=== PATIENT | male | born 1980 | race Caucasian/White ===

== ENCOUNTER → 2018-06-04 08:17 | Outpatient (CLI) | payer BC, SELFPAY ==
[2018-06-04 11:02] LABS: Anion Gap 10 (5-15); BUN 20 mg/dL (7-18); BUN/Creat Ratio 19.4 RATIO (10-20); Calcium,Total 9.2 mg/dL (8.5-10.1); Chloride 106 mmol/L (98-107); Cholesterol 168 mg/dL (200); Creatinine, Serum 1.03 mg/dL (0.70-1.30); EST Glomerular Filtration Rate 87 mL/min (>60); Est Glom Filt Rate - Afr Amer 105 mL/min (>60); Glucose 95 mg/dL (74-106); High Density Lipoprotein 36 mg/dL; Potassium 4.2 mmol/L (3.5-5.1); Sodium Level 137 mmol/L (136-145); Thyroid Stim Hormone (TSH) 1.44 uIU/mL (0.358-3.74); Triglycerides 86 mg/dL; Very Low Density Lipoprotein 17 mg/dL (5-40)
== END ==
PROVIDERS: Family Provider Family Medicine; PCP Family Medicine; Visit Provider Family Medicine
DX: Z00.00 Encounter for general adult medical examination without abnormal findings (principal)
CPT/HCPCS: 36415; 80048; 80061; 84403; 84443

== ENCOUNTER → 2018-07-29 16:13 | Outpatient (CLI) | payer BC, SELFPAY | PROVIDERS: Family Provider Family Medicine; PCP Family Medicine; Visit Provider Family Medicine | DX: E29.1 Testicular hypofunction (principal) | CPT/HCPCS: 36415; 84403 ==

== ENCOUNTER → 2018-09-29 08:20 | Outpatient (CLI) | payer BC, SELFPAY ==
[2017-10-04 12:36] VITALS: BMI 35.7
== END ==
PROVIDERS: Family Provider Family Medicine; PCP Family Medicine; Visit Provider Family Medicine
DX: E29.1 Testicular hypofunction (principal)
CPT/HCPCS: 36415; 84403

== ENCOUNTER → 2018-10-02 15:40 | Outpatient (CLI) | payer BC, SELFPAY ==
[2017-10-04 12:36] VITALS: BMI 35.7
--- NOTE | 2018-10-02 15:49 | RAD_ITS ---
STUDY: X-RAY - RIGHT HIP REASON FOR EXAM: Male, 38 years old. Pain. TECHNIQUE: 2 views of the hip and single image of the pelvis. COMPARISON: None. FINDINGS: There are mild degenerative changes of the hips. Normal visualized superior and inferior pubic rami and ischial tuberosities. There is a nonspecific bowel gas pattern. RAD/HIP, UNI W/ Pelvis 2-3 Views IMPRESSION: Mild degenerative changes. Electronically Signed: Destini Calix MD at 16:09 EST Tel , Service support ,
--- OUTSIDE RECORDS SUMMARY | 2018-12-07 05:34 | XMS RPT_ITS ---
:1980 Author Organization [facility] Care Team Providers Name Role Phone Matt Sam Attending Unavailable Sam, Matt Primary Care Unavailable Sam, Matt Attending Unavailable Sam, Matt Referring Unavailable Sam, Matt Primary Care Unavailable Sam, Matt Attending Unavailable Sam, Matt Referring Unavailable Sam, Matt Primary Care Unavailable Sam, Matt Attending Unavailable Sam, Matt Primary Care Unavailable Sam, Matt Attending Unavailable Sam, Matt Primary Care Unavailable PROBLEMS PROBLEMS DATE TYPE CONDITION / CODE ATTENDING STATUS SOURCE 10/02/2018 Unknown M25.551 - Pain in Matt Sam Active Dg right hip / [facility] M25.551(ICD-10) Hospital Repository 07/29/2018 Unknown 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 [address] [place] [address] / REHABILITATION SERVICES INITIAL EVALUATION MR#: [id number] Acct: [id number] Name: NISREEN ORTIZ Rep #: [id number] : 1980 38 From: Serge JIMENEST, OCS, CSCS Referring Dr.: Matt Sam MD Status: REG R Insurance: ANTH S[employer] PAY INSURANCE Patient's Visit Information NISREEN ORTIZ is a 38 year old M referred to Physical Therapy by Matt Sam MD with a diagnosis of R hip pain. Date of Evaluation: 10/07/18 Physical Therapist: Serge Cristobal DPT, OCS, CSCS - Visit Plan Frequency: 1-2x /Week Duration: 2-4 Weeks Plan: 1-2x/week for 4 weeks... Pt to rest and limit rotations/pivotting/painful activities for next week. Pathology is likely in labrum and needs rest. If doing better with ROM and pain next week then can progress to gentle strength and gradual return to function over 3-4 weeks tolerance. If no better, can increase frequency or return back to doctor for next step(MRI, ORtho) - Subjective Findings: Beginning of last week got outter R hip pain. Progressed to the front of hip. Difficult to walk and transition. Lately transition has been bad but walking not as bad. Been hurting since 1.5 weeks maybe because he was runnign too much. Was sledriding with son that weekend and that did not help. Had achy hip R for a couple weeks prior. Pain 0-6/10 last two days. Sleep is good. 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 Lifting R leg to put sock on(cross leg ) in morning is tight adn painful. Has to avoid running currently. Also does strength training on Bowflex but not able to currently. - Pain R hip Pain Intensity (Out of 10): 0 Pain Intensity Range: 0, 6 - Objective Pain to exit chair in R anterior hip. Walks without antalgia. Steps reciprocal without rail without pain. ankle adn knee ROM B WFL and symmetrical. L hip AROM WFL. R hip AROM normal except end range of IR very painful. Tender to touch hip joint anteriorly R groin. Strength in B hips is 4/5 R and pain wiht rotations slightly, not flexion or extension. L is 4+ and not painful. reflexes 2/3 patella and achilles. Sensation WNL to gross light touch B LE. + R FADDIR. - MICHELLE, - scour. Hurts to pivot on R and disco test. - Goals Goal 1:: Walk and normal PROM without pain. Goal Time Frame: 2-4 Weeks Goal 2:: I approp HEP to rehab Goal Time Frame: 2-4 Weeks Goal 3:: Plan to return to running Goal Time Frame: 2-4 Weeks - Rehabilitation Potential Physical Therapy Diagnosis: R hip pain likely labral pathology. Rehabilitation Potential: Fair - Anticipated Interventions Patient/Client Instruction: Educate patient on: Condition, Plan of Care For the Purpose of:: To decrease pain, To increase ROM, To improve muscle performance and motor function Therapeutic Exercise to Include: Strength training, Flexibilty training, Passive ROM, Active ROM For the Purpose of:: To decrease pain, To improve muscle performance and motor function, To increase tolerance to activity/condition/position Manual Therapy Techniques to Include: Mobilization For the Purpose of:: To increase tolerance to activity/condition/position Thank you for the opportunity to evaluate your patient. For Medicare and Medicare HMO plans, please review the plan of care and approve it. It will need to be FAXED BACK to us at [phone] for Medicare purposes. For Medicare only, by signing this I certify the plan of care. Please let me know if there are questions or concerns regarding this plan of care. Physician Signature: Date: <Electronically signed by Serge Cristobal DPT, OCS, CSCS> 10/08/18 0921 CC: Matt Sam MD EBG Signed HIP, UNI W/ PELVIS Observed: 10/02/2018 Status: F Source: DG 2-3 VIEWS 3:49 PM [facility] REPOSITORY [facility] Imaging Services [address] [place] [address] HIP, UNI W/ Pelvis 2-3 Views MR#: [id number] Acct: [id number] Name: NISREEN ORTIZ Rep #: [id number] : 1980 M 38 From: Destini Calix MD PCP: Matt Sam MD Status: REG CLI Study: HIP, UNI W/ Pelvis 2-3 Views Date of Exam: 10/02/18 Exam# [id number] Ordering Dr: Matt Sam MD STUDY: X-RAY - RIGHT HIP REASON FOR EXAM: Male, 38 years old. Pain. TECHNIQUE: 2 views of the hip and single image of the pelvis. COMPARISON: None. FINDINGS: There are mild degenerative changes of the hips. Normal visualized superior and inferior pubic rami and ischial tuberosities. There is a nonspecific bowel gas pattern. RAD/HIP, UNI W/ Pelvis 2-3 Views IMPRESSION: Mild degenerative changes. Electronically Signed: Destini Calix MD at 16:09 EST Tel , Service support , CC: Matt Sam MD Photograph Tinter: Signed TESTOSTERONE, SERUM TOTAL Collected: 09/29/2018 Status: F Source: DG 8:21 AM [facility] REPOSITORY TYPE CODE TESTS RESULT OUT OF REFERENCE UNITS RANGE LAB L509.3000 ng/dL Testosterone Normal 187.04 Result Comment: NORMAL REFERENCE RANGES MALE AGE <50 123.06 - 813.86 ng/dL MALE AGE >50 89.98 - 780.10 ng/dL FEMALE PREMENOPAUSE AGE 21 - 60 9.01 - 47.94 ng/dL FEMALE POSTMENOPAUSE AGE 45 - 89 <7.00 - 45.62 ng/dL REFERENCE RANGE AND METHODOLOGY CHANGED 09/03/2017 Performed By: #### L509.3000 #### Dg [facility] [place], [address] TESTOSTERONE, SERUM TOTAL Collected: 07/29/2018 Status: F Source: DG 4:16 PM [facility] REPOSITORY TYPE CODE TESTS RESULT OUT OF REFERENCE UNITS RANGE LAB L509.3000 ng/dL Testosterone Normal 434.45 Result Comment: NORMAL REFERENCE RANGES MALE AGE <50 123.06 - 813.86 ng/dL MALE AGE >50 89.98 - 780.10 ng/dL FEMALE PREMENOPAUSE AGE 21 - 60 9.01 - 47.94 ng/dL FEMALE POSTMENOPAUSE AGE 45 - 89 <7.00 - 45.62 ng/dL REFERENCE RANGE AND METHODOLOGY CHANGED 09/03/2017 Performed By: #### L509.3000 #### [facility] [address] [place], [address] TESTOSTERONE, SERUM TOTAL Collected: 06/04/2018 Status: F Source: [place] 8:20 AM [facility] REPOSITORY TYPE CODE TESTS RESULT OUT OF REFERENCE UNITS RANGE LAB L509.3000 ng/dL Testosterone Normal 214.68 Result Comment: NORMAL REFERENCE RANGES MALE AGE <50 123.06 - 813.86 ng/dL MALE AGE >50 89.98 - 780.10 ng/dL FEMALE PREMENOPAUSE AGE 21 - 60 9.01 - 47.94 ng/dL FEMALE POSTMENOPAUSE AGE 45 - 89 <7.00 - 45.62 ng/dL REFERENCE RANGE AND METHODOLOGY CHANGED 09/03/2017 Performed By: #### L509.3000 #### [facility] [address] [facility] [place], [address] BASIC METABOLIC Collected: 06/04/2018 Status: F Source: DG PROFILE (BMP) 8:20 AM [facility] REPOSITORY TYPE CODE TESTS RESULT OUT OF RANGE REFERENCE UNITS LAB L501.0100 74-106 mg/dL Normal GLU 95 Result Comment: Please note revised GLUCOSE reference range effective 2017. LAB L501.1000 7-18 mg/dL High BUN 20 LAB L501.1100 0.70-1.30 mg/dL Normal CREAT,SERUM 1.03 Result Comment: The validity of the calculated GFR AND GFRAA in patients over 70 years has not been determined. Clinical correlation is essential. LAB L501.1110 >60 mL/min Normal EST GFR 87 Result Comment: Non- GFR Calc LAB L501.1115 >60 mL/min Normal EST GFR - AA 105 Result Comment: GFR Calc LAB L501.1300 10-20 RATIO Normal BUN/CRE 19.4 LAB L501.2200 8.5-10.1 mg/dL CA Normal 9.2 LAB L501.5300 136-145 mmol/L NA Normal 137 LAB L501.5600 3.5-5.1 mmol/L K Normal 4.2 LAB L501.5900 98-107 mmol/L CL Normal 106 LAB L501.6100 21.0-32.0 mmol/L Normal CO2 21.0 LAB L501.6200 5-15 Normal GAP 10 Performed By: #### L500.2500, L500.4100, L501.9520 #### [facility] [address] [facility] [place], [address] LIPID PROFILE Collected: 06/04/2018 Status: F Source: [place] 8:20 AM [facility] REPOSITORY TYPE CODE TESTS RESULT OUT OF RANGE REFERENCE UNITS LAB L501.4900 200 mg/dL Normal CHOL 168 Result Comment: <200 mg/dL Desirable 200-240 mg/dL Borderline >240 mg/dL High Risk LAB L501.5000 mg/dL Normal TRIG 86 Result Comment: The drugs N-Acetylcysteine and Metamizole may falsely depress this assay. Serum Triglycerides Reference Interval Normal <150 mg/dL Borderline high 150 - 199 mg/dL High 200 - 499 mg/dL Very High > or = 500 mg/dL LAB L501.6400 mg/dL Low HDL 36 Result Comment: The drugs N-Acetylcysteine and Metamizole may falsely depress this assay. Reference Range HDL <40 mg/dL Low HDL Cholesterol HDL >or= 60 mg/dL High HDL Cholesterol LAB L501.6500 0-130 mg/dL Normal LDL 115 LAB L501.6600 5-40 mg/dL Normal VLDL 17 Performed By: #### L500.2500, L500.4100, L501.9520 #### [facility] [address] [facility] [place], [address] THYROID STIM HORMONE Collected: 06/04/2018 Status: F Source: [place] ([facility]) 8:20 AM [facility] REPOSITORY TYPE CODE TESTS RESULT OUT OF RANGE REFERENCE UNITS LAB L501.9520 0.358-3.74 uIU/mL Normal TSH 1.44 Performed By: #### L500.2500, L500.4100, L501.9520 #### [facility] [address] [place], [address] ALLERGIES ALLERGIES DATE TYPE / CODE NAME / CODE REACTION SEVERITY SOURCE 10/04/2017 Drug No Known Unknown [facility] Allergy/4160 Allergies/F00 Hospital 96407(SNOMED [id number](RXNOR Repository CT) M) ENCOUNTERS ENCOUNTERS ADMIT/DISCHARGE ACCOUNT ADMITTING ENCOUNTER LOCATION SOURCE NUMBER CLASS 10/07/2018 [id number] Ambulatory Dg Dg 8 [facility] ing:PT Repository 10/02/2018 [id number] Ambulatory Dg [place] 8 [facility] ing:MTRAD Repository 09/29/2018 [id number] [facility] Dg Dg 5 [facility] ing:MFPLAB Repository 07/29/2018 [id number] Ambulatory [place] Dg 3 [facility] ing:MFPLAB Repository 06/04/2018 [id number] [facility] [place] 2 [facility] ing:MFPLAB Repository PAYERS PAYERS ENCOUNTER GUARANTOR PAYER SUBSCRIBER SOURCE 10/07/2018 NISREEN CAO Primary NISREEN Urrutiaoster [id number] TR Insurance:ANTHEMPolic TAGGARTDOB: [address] y Number: [id number] [address]Wjt: 330 [id number] Repository [phone] (HP) cecily Date:4101-55-89SN [address] [place] [address]OF: 10/07/2018 Secondary NOT GIVENUNK [place] Insurance:SELF PAY [facility] Number: Effective Repository Date:2018-10-02 10/02/2018 NISREEN CAO Primary NISREEN CAO Dg [id number] TR Insurance:ANTHEMPolic TAGGARTDOB: [address] y Number: [id number] [address]Jdx: 330 [id number] Repository [phone] (UU) cecily Date:7554-14-75LX [address] [place] [address] [id number]: 10/02/2018 Secondary NOT GIVENUNK Dg Insurance:SELF PAY [facility] Number: Effective Repository Date:2018-10-02 09/29/2018 NISREEN CAO Primary NISREEN E KILEY [place] [id number] TWP Insurance:ANTHEMPolic TAGGARTDOB: [address], y Number: [id number]: [id number] Repository cecily Date:6764-19-38OI () [address], [place] [address]ES: 09/29/2018 Secondary NOT GIVENUNK Dg Insurance:SELF PAY [facility] Number: Effective Repository Date:2018-09-29 07/29/2018 NISREEN CAO Primary NISREEN E KILEY [place] [id number] TWP Insurance:ANTHEMPolic TAGGARTDOB: [address] [place] [address], y Number: [id number]: [id number] Repository cecily Date:4623-38-33ZW () [address], [place] [address]MG: 07/29/2018 Secondary NOT GIVENUNK [place] Insurance:SELF PAY [facility] Number: Effective Repository Date:2018-07-29 06/04/2018 NISREEN CAO Primary NISREEN E KILEY Dg [id number] TWP Insurance:ANTHEMPolic TAGGARTDOB: [address] [place] [address], y Number: [id number] [address]Fyz: [id number] Repository cecily Date:3698-24-25XA ) [address], [place] [address]KZ: 06/04/2018 Secondary NOT GIVENUNK [place] Insurance:SELF PAY [facility] Number: Effective Repository Date:2018-06-04
== END ==
PROVIDERS: Family Provider Family Medicine; PCP Family Medicine; Referring Provider Family Medicine; Visit Provider Family Medicine
DX: M25.551 Pain in right hip (principal)
CPT/HCPCS: 73502

== ENCOUNTER → 2018-11-04 16:20 | Outpatient (CLI) | payer BC, SELFPAY ==
[2017-10-04 12:36] VITALS: BMI 35.7
== END ==
PROVIDERS: Family Provider Family Medicine; PCP Family Medicine; Visit Provider Family Medicine
DX: E29.1 Testicular hypofunction (principal)
CPT/HCPCS: 36415; 84403

== ENCOUNTER 2018-11-11 15:30 | Outpatient (RCR) | payer BC, SELFPAY ==
--- NOTE | 2018-10-07 15:50 | HP.PTEVAL_ITS ---
Patient's Visit Information NISREEN ORTIZ is a 38 year old M referred to Physical Therapy by Matt Sam MD with a diagnosis of R hip pain. Date of Evaluation: 10/07/18 Physical Therapist: Serge Cristobal DPT, OCS, CSCS - Visit Plan Frequency: 1-2x /Week Duration: 2-4 Weeks Plan: 1-2x/week for 4 weeks... Pt to rest and limit rotations/pivotting/painful activities for next week. Pathology is likely in labrum and needs rest. If doing better with ROM and pain next week then can progress to gentle strength and gradual return to function over 3-4 weeks tolerance. If no better, can increase frequency or return back to doctor for next step(MRI, ORtho) - Subjective Findings: Beginning of last week got outter R hip pain. Progressed to the front of hip. Difficult to walk and transition. Lately transition has been bad but walking not as bad. Been hurting since 1.5 weeks maybe because he was runnign too much. Was sledriding with son that weekend and that did not help. Had achy hip R for a couple weeks prior. Pain 0-6/10 last two days. Sleep is good. 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 Lifting R leg to put sock on(cross leg ) in morning is tight adn painful. Has to avoid running currently. Also does strength training on Bowflex but not able to currently. - Pain R hip Pain Intensity (Out of 10): 0 Pain Intensity Range: 0, 6 - Objective Pain to exit chair in R anterior hip. Walks without antalgia. Steps reciprocal without rail without pain. ankle adn knee ROM B WFL and symmetrical. L hip AROM WFL. R hip AROM normal except end range of IR very painful. Tender to touch hip joint anteriorly R groin. Strength in B hips is 4/5 R and pain wiht rotations slightly, not flexion or extension. L is 4+ and not painful. reflexes 2/3 patella and achilles. Sensation WNL to gross light touch B LE. + R FADDIR. - MICHELLE, - scour. Hurts to pivot on R and disco test. - Goals Goal 1:: Walk and normal PROM without pain. Goal Time Frame: 2-4 Weeks Goal 2:: I approp HEP to rehab Goal Time Frame: 2-4 Weeks Goal 3:: Plan to return to running Goal Time Frame: 2-4 Weeks - Rehabilitation Potential Physical Therapy Diagnosis: R hip pain likely labral pathology. Rehabilitation Potential: Fair - Anticipated Interventions Patient/Client Instruction: Educate patient on: Condition, Plan of Care For the Purpose of:: To decrease pain, To increase ROM, To improve muscle performance and motor function Therapeutic Exercise to Include: Strength training, Flexibilty training, Passive ROM, Active ROM For the Purpose of:: To decrease pain, To improve muscle performance and motor function, To increase tolerance to activity/condition/position Manual Therapy Techniques to Include: Mobilization For the Purpose of:: To increase tolerance to activity/condition/position Thank you for the opportunity to evaluate your patient. For Medicare and Medicare HMO plans, please review the plan of care and approve it. It will need to be FAXED BACK to us at [phone] for Medicare purposes. For Medicare only, by signing this I certify the plan of care. Please let me know if there are questions or concerns regarding this plan of care. Physician Signature: Date:
--- NOTE | 2018-11-11 15:48 | HP.PTDCSUM ---
HP - PT D/C Summary It has been my pleasure to treat NISREEN ORTIZ under orders from Matt Sam MD, for the diagnosis of R hip pain for a total of 5 visit(s). Discharge Date: 11/11/18 Please see the following information for a summary of their discharge status. - Subjective Subjective: Good, jogging 22 minutes on and off. Gets some soreness gayla nd off the day after but not while he is running. Sleep is OK. Other exercises are fine. Works good. - Pain R hip Pain Intensity (Out of 10): 0 - Overall Improvement % Improvement: 80 - Objective Objective/Function: Walk is normal, steps are normal. double steps normal no pain. ROM is full and just slight pinching transiently end of flexion and IR. Strength is 5/5 hip tests without pain and knee tests. OVERALL DOING WELL AND CAN PROGRESS HIMSELF AT THIS POINT. - Goals Goal 1:: Walk and normal PROM without pain. Goal Progress: Goal Met Goal 2:: I approp HEP to rehab Goal Progress: Goal Met Goal 3:: Plan to return to running Goal Progress: Goal Met - Plan Plan: d/c, Pt to contact doctor if pain returns. - D/C Information Discharge Comments: pt doing very well adn will continue via HEP and slow progression of functional running. If there are questions or concerns regarding this patient's physical therapy, please feel free to call me at [phone]. Thank you for the referral of this patient. Sincerely, Serge Cristobal, DPT, OCS, CSCS
== END 2018-11-11 19:00 | disposition home or self-care (01) ==
LOC: PT 15:30
PROVIDERS: Family Provider Family Medicine; PCP Family Medicine; Referring Provider Family Medicine; Visit Provider Family Medicine
DX: M25.551 Pain in right hip (principal)
CPT/HCPCS: 97110; 97162; 97530

== ENCOUNTER → 2019-03-10 | Outpatient (CLI) | payer BC, SELFPAY ==
[2017-10-04 12:36] VITALS: BMI 35.7
== END | disposition home or self-care (01) ==
LOC: MFPLAB 11:22
PROVIDERS: Family Provider Family Medicine; PCP Family Medicine; Referring Provider Family Medicine; Visit Provider Family Medicine
DX: E29.1 Testicular hypofunction (principal)
CPT/HCPCS: 36415; 84403

== ENCOUNTER → 2019-05-13 | Outpatient (CLI) | payer BC, SELFPAY ==
[2017-10-04 12:36] VITALS: BMI 35.7
[2019-05-13 14:12] LABS: Absolute Lymphocyte Count 1.51 X10^3/uL (0.83-4.51); Absolute Neutrophil Count 3.6 X10^3/uL (2.0-7.7); Basophil# 0.04 X10^3/uL; Basophil% 0.7 % (0-1); Eosinophil# 0.04 X10^3/uL; Eosinophils% 0.7 % (0-5); Hematocrit 50.5 % (40-54); Hemoglobin 16.5 g/dL (13.0-16.5); Lymphocyte # 1.51 X10^3/ul (4.0); Lymphocyte % 26.8 % (19-41); Mean Corp Hgb Conc 32.7 g/dL (32-36); Mean Corpuscular Hgb 29.5 pg (27.0-32.0); Mean Corpuscular Volume 90.2 fL (80-94); Mean Platelet Vol. 12.1 fl (6.2-12.0); Monocyte# 0.46 X10^3/uL; Monocyte% 8.2 % (0-10); NRBC Flagged by Analyzer 0 % (0-5); Neutrophil # 3.59 X10^3/uL (2.7-7.7); Neutrophil % 63.6 % (47-70); Platelet Count 186 K/mm3 (150-450); RBC Distribution Width SD 42.6 fl (35.1-43.9); White Blood Count 5.6 K/mm3 (4.4-11.0)
[2019-05-13 14:36] LABS: PSA,Total - Annual Screen 1.07 ng/mL (0.00-4.00)
== END | disposition home or self-care (01) ==
LOC: MFPLAB 11:46
PROVIDERS: Family Provider Family Medicine; PCP Family Medicine; Referring Provider Family Medicine; Visit Provider Family Medicine
DX: E29.1 Testicular hypofunction (principal)
CPT/HCPCS: 36415; 84153; 84403; 85025; G0103

== ENCOUNTER → 2019-05-26 12:07 | Outpatient (CLI) | payer BC, SELFPAY ==
[2017-10-04 12:36] VITALS: BMI 35.7
== END ==
PROVIDERS: Family Provider Family Medicine; PCP Family Medicine; Referring Provider Family Medicine; Visit Provider Family Medicine
DX: E29.1 Testicular hypofunction (principal)
CPT/HCPCS: 36415; 84403

== ENCOUNTER → 2020-06-23 13:46 | Outpatient (CLI) | payer BC, SELFPAY ==
[2017-10-04 12:36] VITALS: BMI 35.7
[2020-06-23 15:08] LABS: Absolute Lymphocyte Count 1.57 X10^3/uL (0.83-4.51); Absolute Neutrophil Count 3.2 X10^3/uL (2.0-7.7); Basophil# 0.04 X10^3/uL; Basophil% 0.7 % (0-1); Eosinophil# 0.05 X10^3/uL; Eosinophils% 0.9 % (0-5); Hematocrit 51.5 % (40-54); Hemoglobin 16.7 g/dL (13.0-16.5); Lymphocyte # 1.57 X10^3/ul (4.0); Lymphocyte % 29.3 % (19-41); Mean Corp Hgb Conc 32.4 g/dL (32-36); Mean Corpuscular Hgb 29.2 pg (27.0-32.0); Mean Platelet Vol. 12.2 fl (6.2-12.0); Monocyte# 0.52 X10^3/uL; Monocyte% 9.7 % (0-10); NRBC Flagged by Analyzer 0 % (0-5); Neutrophil # 3.17 X10^3/uL (2.7-7.7); Neutrophil % 59.2 % (47-70); Platelet Count 181 K/mm3 (150-450); RBC Distribution Width CV 13.1 % (11.6-14.6); Red Blood Count 5.72 M/mm3 (4.6-6.2); White Blood Count 5.4 K/mm3 (4.4-11.0)
[2020-06-23 15:41] LABS: Anion Gap 6 (5-15); BUN 22 mg/dL (7-18); BUN/Creat Ratio 23.2 RATIO (10-20); Calcium,Total 8.9 mg/dL (8.5-10.1); Chloride 101 mmol/L (98-107); Creatinine, Serum 0.95 mg/dL (0.70-1.30); EST Glomerular Filtration Rate 94 mL/min (>60); Est Glom Filt Rate - Afr Amer 114 mL/min (>60); Glucose 69 mg/dL (74-106); PSA,Total - Annual Screen 1.14 ng/mL (0.00-4.00); Potassium 3.8 mmol/L (3.5-5.1); Sodium Level 133 mmol/L (136-145)
== END ==
PROVIDERS: PCP Family Medicine; Referring Provider Family Medicine; Visit Provider Family Medicine
DX: E29.1 Testicular hypofunction (principal)
CPT/HCPCS: 36415; 80048; 84153; 84403; 85025; G0103

== ENCOUNTER → 2020-12-28 08:19 | Outpatient (CLI) | payer BC, SELFPAY ==
[2017-10-04 12:36] VITALS: BMI 35.7
[2020-12-28 10:45] LABS: Anion Gap 2 (5-15); BUN 19 mg/dL (7-18); BUN/Creat Ratio 15.6 RATIO (10-20); Chloride 105 mmol/L (98-107); Cholesterol 164 mg/dL (200); Creatinine, Serum 1.22 mg/dL (0.70-1.30); EST Glomerular Filtration Rate 70 mL/min (>60); Est Glom Filt Rate - Afr Amer 85 mL/min (>60); Glucose 91 mg/dL (74-106); High Density Lipoprotein 49 mg/dL; PSA,Total - Annual Screen 1.53 ng/mL (0.00-4.00); Sodium Level 134 mmol/L (136-145); Triglycerides 67 mg/dL; Very Low Density Lipoprotein 13 mg/dL (5-40)
== END ==
PROVIDERS: PCP Family Medicine; Referring Provider Family Medicine; Visit Provider Family Medicine
DX: I10 Essential (primary) hypertension (principal); E29.1 Testicular hypofunction
CPT/HCPCS: 36415; 80048; 80061; 84153; 84403; G0103

== ENCOUNTER 2021-01-23 13:08 | Outpatient (RCR) | payer BC, SELFPAY | END 2021-02-27 23:59 | LOC: IMMUN 13:08 | PROVIDERS: PCP Family Medicine; Visit Provider Family Medicine | DX: Z23 Encounter for immunization (principal) | CPT/HCPCS: 0001A; 0002A; 91300 ==

== ENCOUNTER → 2021-06-27 11:27 | Outpatient (CLI) | payer BC, SELFPAY ==
[2021-06-27 15:16] LABS: Anion Gap 8 (5-15); BUN 17 mg/dL (7-18); BUN/Creat Ratio 16.3 RATIO (10-20); Calcium,Total 8.9 mg/dL (8.5-10.1); Chloride 103 mmol/L (98-107); Cholesterol 144 mg/dL (200); Creatinine, Serum 1.04 mg/dL (0.70-1.30); EST Glomerular Filtration Rate 84 mL/min (>60); Est Glom Filt Rate - Afr Amer 102 mL/min (>60); Glucose 85 mg/dL (74-106); High Density Lipoprotein 48 mg/dL; PSA,Total - Annual Screen 1.26 ng/mL (0.00-4.00); Potassium 3.9 mmol/L (3.5-5.1); Sodium Level 137 mmol/L (136-145); Triglycerides 72 mg/dL; Very Low Density Lipoprotein 14 mg/dL (5-40)
== END ==
PROVIDERS: PCP Family Medicine; Referring Provider Family Medicine; Visit Provider Family Medicine
DX: I10 Essential (primary) hypertension (principal); E29.1 Testicular hypofunction
CPT/HCPCS: 36415; 80048; 80061; 84153; 84403; G0103

== ENCOUNTER → 2022-01-09 | Outpatient (CLI) | payer BC, SELFPAY ==
[2022-01-09 15:26] LABS: Absolute Lymphocyte Count 1.75 X10^3/uL (0.83-4.51); Absolute Neutrophil Count 2.9 X10^3/uL (2.0-7.7); Basophil# 0.04 X10^3/uL; Basophil% 0.8 % (0-1); Eosinophil# 0.02 X10^3/uL; Eosinophils% 0.4 % (0-5); Hematocrit 48.1 % (40-54); Hemoglobin 16.3 g/dL (13.0-16.5); Lymphocyte # 1.75 X10^3/ul (0.83-4.51); Lymphocyte % 33.7 % (19-41); Mean Corp Hgb Conc 33.9 g/dL (32-36); Mean Corpuscular Hgb 29.9 pg (27.0-32.0); Mean Corpuscular Volume 88.1 fL (80-94); Monocyte# 0.47 X10^3/uL; NRBC Flagged by Analyzer 0 % (0-5); Neutrophil # 2.91 X10^3/uL (2.7-7.7); Neutrophil % 55.9 % (47-70); Platelet Count 186 K/mm3 (150-450); RBC Distribution Width CV 12.3 % (11.6-14.6); RBC Distribution Width SD 39.8 fl (35.1-43.9); Red Blood Count 5.46 M/mm3 (4.6-6.2); White Blood Count 5.2 K/mm3 (4.4-11.0)
[2022-01-09 15:39] LABS: Anion Gap 4 (5-15); BUN 17 mg/dL (7-18); BUN/Creat Ratio 14.9 RATIO (10-20); Chloride 104 mmol/L (98-107); Cholesterol 183 mg/dL (200); Creatinine, Serum 1.14 mg/dL (0.70-1.30); EST Glomerular Filtration Rate 76 mL/min (>60); Est Glom Filt Rate - Afr Amer 92 mL/min (>60); Glucose 88 mg/dL (74-106); High Density Lipoprotein 53 mg/dL; PSA,Total- Diagnostic 1.13 ng/mL (0.0-4.0); Potassium 3.9 mmol/L (3.5-5.1); Sodium Level 136 mmol/L (136-145); Triglycerides 82 mg/dL; Very Low Density Lipoprotein 16 mg/dL (5-40)
== END | disposition home or self-care (01) ==
LOC: MFPLAB 12:09
PROVIDERS: PCP Family Medicine; Referring Provider Family Medicine; Visit Provider Family Medicine
DX: E29.1 Testicular hypofunction (principal); I10 Essential (primary) hypertension
CPT/HCPCS: 36415; 80048; 80061; 84153; 84403; 85025

== ENCOUNTER → 2022-07-10 | Outpatient (CLI) | payer BC, SELFPAY ==
[2022-07-10 18:50] LABS: Anion Gap 8 (5-15); BUN 20 mg/dL (7-18); BUN/Creat Ratio 16.9 RATIO (10-20); Calcium,Total 8.7 mg/dL (8.5-10.1); Chloride 104 mmol/L (98-107); Cholesterol 170 mg/dL (200); Creatinine, Serum 1.18 mg/dL (0.70-1.30); EST Glomerular Filtration Rate 73 mL/min (>60); Est Glom Filt Rate - Afr Amer 88 mL/min (>60); Glucose 93 mg/dL (74-106); High Density Lipoprotein 49 mg/dL; Potassium 3.8 mmol/L (3.5-5.1); Sodium Level 135 mmol/L (136-145); Triglycerides 164 mg/dL; Very Low Density Lipoprotein 33 mg/dL (5-40)
== END | disposition home or self-care (01) ==
LOC: MFPLAB 16:19
PROVIDERS: PCP Family Medicine; Referring Provider Family Medicine; Visit Provider Family Medicine
DX: E29.1 Testicular hypofunction (principal); I10 Essential (primary) hypertension
CPT/HCPCS: 36415; 80048; 80061; 84403

== ENCOUNTER → 2023-01-08 | Outpatient (CLI) | payer BC, SELFPAY ==
[2023-01-08 12:41] LABS: Absolute Neutrophil Count 2.3 X10^3/uL (2.0-7.7); Basophil# 0.03 X10^3/uL; Basophil% 0.7 % (0-1); Eosinophil# 0.02 X10^3/uL; Eosinophils% 0.5 % (0-5); Hematocrit 50.1 % (40-54); Hemoglobin 17.1 g/dL (13.0-16.5); Lymphocyte % 31.7 % (19-41); Mean Corp Hgb Conc 34.1 g/dL (32-36); Mean Corpuscular Hgb 30.1 pg (27.0-32.0); Mean Platelet Vol. 12.1 fl (6.2-12.0); Monocyte# 0.41 X10^3/uL; NRBC Flagged by Analyzer 0 % (0-5); Neutrophil # 2.33 X10^3/uL (2.7-7.7); Neutrophil % 56.9 % (47-70); Platelet Count 187 K/mm3 (150-450); RBC Distribution Width CV 12.4 % (11.6-14.6); RBC Distribution Width SD 39.6 fl (35.1-43.9); Red Blood Count 5.69 M/mm3 (4.6-6.2); White Blood Count 4.1 K/mm3 (4.4-11.0)
[2023-01-08 13:25] LABS: PSA,Total - Annual Screen 1.44 ng/mL (0.00-4.00)
== END | disposition home or self-care (01) ==
LOC: MFPLAB 11:30
PROVIDERS: PCP Family Medicine; Visit Provider Family Medicine
DX: E29.1 Testicular hypofunction (principal)
CPT/HCPCS: 36415; 84153; 84403; 85025; G0103

== ENCOUNTER → 2023-07-24 | Outpatient (CLI) | payer BC, SELFPAY ==
[2023-07-24 10:07] LABS: Absolute Lymphocyte Count 1.33 X10^3/uL (0.83-4.51); Absolute Neutrophil Count 2.5 X10^3/uL (2.0-7.7); Basophil# 0.03 X10^3/uL; Basophil% 0.7 % (0-1); Eosinophil# 0.05 X10^3/uL; Eosinophils% 1.2 % (0-5); Hematocrit 53.5 % (40-54); Hemoglobin 17.6 g/dL (13.0-16.5); Lymphocyte # 1.33 X10^3/ul (0.83-4.51); Lymphocyte % 31.2 % (19-41); Mean Corp Hgb Conc 32.9 g/dL (32-36); Mean Corpuscular Hgb 29.6 pg (27.0-32.0); Mean Corpuscular Volume 89.9 fL (80-94); Mean Platelet Vol. 11.6 fl (6.2-12.0); Monocyte# 0.39 X10^3/uL; Monocyte% 9.2 % (0-10); NRBC Flagged by Analyzer 0 % (0-5); Neutrophil # 2.46 X10^3/uL (2.7-7.7); Neutrophil % 57.7 % (47-70); Platelet Count 198 K/mm3 (150-450); RBC Distribution Width CV 12.5 % (11.6-14.6); RBC Distribution Width SD 41.2 fl (35.1-43.9); Red Blood Count 5.95 M/mm3 (4.6-6.2); White Blood Count 4.3 K/mm3 (4.4-11.0)
[2023-07-24 10:22] LABS: Anion Gap 0 (5-15); BUN 13 mg/dL (7-18); Calcium,Total 9.5 mg/dL (8.5-10.1); Chloride 101 mmol/L (98-107); Cholesterol 224 mg/dL (200); Creatinine, Serum 1.18 mg/dL (0.70-1.30); EST Glomerular Filtration Rate 72 mL/min (>60); Est Glom Filt Rate - Afr Amer 87 mL/min (>60); Glucose 98 mg/dL (74-106); High Density Lipoprotein 55 mg/dL; Potassium 5.6 mmol/L (3.5-5.1); Sodium Level 134 mmol/L (136-145); Triglycerides 121 mg/dL; Very Low Density Lipoprotein 24 mg/dL (5-40)
== END | disposition home or self-care (01) ==
LOC: MFPLAB 08:17
PROVIDERS: PCP Family Medicine; Visit Provider Family Medicine
DX: E29.1 Testicular hypofunction (principal); I10 Essential (primary) hypertension
CPT/HCPCS: 36415; 80048; 80061; 84153; 84403; 85025

== ENCOUNTER → 2023-08-05 | Outpatient (CLI) | payer BC, SELFPAY ==
[2023-08-05 10:30] LABS: Absolute Lymphocyte Count 1.35 X10^3/uL (0.83-4.51); Absolute Neutrophil Count 2.1 X10^3/uL (2.0-7.7); Basophil# 0.02 X10^3/uL; Basophil% 0.5 % (0-1); Eosinophil# 0.04 X10^3/uL; Hematocrit 50.7 % (40-54); Hemoglobin 16.7 g/dL (13.0-16.5); Lymphocyte # 1.35 X10^3/ul (0.83-4.51); Lymphocyte % 34.6 % (19-41); Mean Corp Hgb Conc 32.9 g/dL (32-36); Mean Corpuscular Hgb 30.3 pg (27.0-32.0); Mean Platelet Vol. 11.8 fl (6.2-12.0); Monocyte# 0.37 X10^3/uL; Monocyte% 9.5 % (0-10); NRBC Flagged by Analyzer 0 % (0-5); Neutrophil # 2.11 X10^3/uL (2.7-7.7); Neutrophil % 54.1 % (47-70); Platelet Count 182 K/mm3 (150-450); RBC Distribution Width CV 12.9 % (11.6-14.6); RBC Distribution Width SD 43.6 fl (35.1-43.9); Red Blood Count 5.51 M/mm3 (4.6-6.2); White Blood Count 3.9 K/mm3 (4.4-11.0)
[2023-08-05 10:44] LABS: Anion Gap 4 (5-15); BUN 26 mg/dL (7-18); BUN/Creat Ratio 22.2 RATIO (10-20); Chloride 106 mmol/L (98-107); Creatinine, Serum 1.17 mg/dL (0.70-1.30); EST Glomerular Filtration Rate 73 mL/min (>60); Est Glom Filt Rate - Afr Amer 88 mL/min (>60); Glucose 94 mg/dL (74-106); Potassium 4.3 mmol/L (3.5-5.1); Sodium Level 136 mmol/L (136-145)
== END | disposition home or self-care (01) ==
LOC: MFPLAB 08:20
PROVIDERS: PCP Family Medicine; Visit Provider Family Medicine
DX: E29.1 Testicular hypofunction (principal)
CPT/HCPCS: 36415; 80048; 85025

== ENCOUNTER → 2024-03-19 | Outpatient (CLI) | payer BC, SELFPAY ==
[2024-03-19 10:06] LABS: Absolute Lymphocyte Count 1.31 X10^3/uL (0.83-4.51); Absolute Neutrophil Count 2.7 X10^3/uL (2.0-7.7); Basophil# 0.04 X10^3/uL; Basophil% 0.9 % (0-1); Eosinophil# 0.04 X10^3/uL; Eosinophils% 0.9 % (0-5); Hematocrit 49.7 % (40-54); Hemoglobin 16.8 g/dL (13.0-16.5); Lymphocyte # 1.31 X10^3/ul (0.83-4.51); Lymphocyte % 28.4 % (19-41); Mean Corp Hgb Conc 33.8 g/dL (32-36); Mean Corpuscular Hgb 29.5 pg (27.0-32.0); Mean Corpuscular Volume 87.3 fL (80-94); Mean Platelet Vol. 11.7 fl (6.2-12.0); Monocyte# 0.48 X10^3/uL; Monocyte% 10.4 % (0-10); NRBC Flagged by Analyzer 0 % (0-5); Neutrophil # 2.73 X10^3/uL (2.7-7.7); Neutrophil % 59.2 % (47-70); Platelet Count 177 K/mm3 (150-450); RBC Distribution Width CV 12.5 % (11.6-14.6); RBC Distribution Width SD 39.9 fl (35.1-43.9); Red Blood Count 5.69 M/mm3 (4.6-6.2); White Blood Count 4.6 K/mm3 (4.4-11.0)
[2024-03-19 10:47] LABS: ALB/GLOB Ratio 1.3 RATIO (0.9-2.4); AST(SGOT) 28 U/L (15-37); Alanine Aminotransfer ALT/SGPT 26 U/L (16-61); Albumin, Serum 4.3 g/dL (3.2-5.0); Alkaline Phosphatase 48 U/L (45-117); Anion Gap 9 (5-15); BUN 27 mg/dL (7-18); Calcium,Total 8.9 mg/dL (8.5-10.1); Chloride 102 mmol/L (98-107); Cholesterol 206 mg/dL (200); Creatinine, Serum 1.23 mg/dL (0.70-1.30); EST Glomerular Filtration Rate 69 mL/min (>60); Est Glom Filt Rate - Afr Amer 83 mL/min (>60); Globulin 3.3 g/dL (2.2-4.2); Glucose 85 mg/dL (74-106); High Density Lipoprotein 51 mg/dL; PSA,Total - Annual Screen 1.49 ng/mL (0.00-4.00); Potassium 4.1 mmol/L (3.5-5.1); Protein, Total 7.6 g/dL (6.4-8.2); Sodium Level 133 mmol/L (136-145); Triglycerides 70 mg/dL; Very Low Density Lipoprotein 14 mg/dL (5-40)
== END | disposition home or self-care (01) ==
LOC: MTLAB 08:56
PROVIDERS: PCP Family Medicine; Referring Provider Family Medicine; Visit Provider Family Medicine
DX: E29.1 Testicular hypofunction (principal); I10 Essential (primary) hypertension
CPT/HCPCS: 36415; 80053; 80061; 84153; 84403; 85025; G0103

== ENCOUNTER → 2024-08-26 | Outpatient (CLI) | payer BC, SELFPAY ==
[2024-08-26 10:21] LABS: Absolute Lymphocyte Count 1.28 X10^3/uL (0.83-4.51); Absolute Neutrophil Count 2.3 X10^3/uL (2.0-7.7); Basophil# 0.02 X10^3/uL; Basophil% 0.5 % (0-1); Eosinophil# 0.03 X10^3/uL; Eosinophils% 0.7 % (0-5); Hematocrit 50.7 % (40-54); Hemoglobin 16.8 g/dL (13.0-16.5); Lymphocyte # 1.28 X10^3/ul (0.83-4.51); Lymphocyte % 31.8 % (19-41); Mean Corp Hgb Conc 33.1 g/dL (32-36); Mean Corpuscular Hgb 28.7 pg (27.0-32.0); Mean Corpuscular Volume 86.5 fL (80-94); Mean Platelet Vol. 11.9 fl (6.2-12.0); Monocyte# 0.39 X10^3/uL; Monocyte% 9.7 % (0-10); NRBC Flagged by Analyzer 0 % (0-5); Neutrophil % 57.1 % (47-70); Platelet Count 177 K/mm3 (150-450); RBC Distribution Width CV 12.2 % (11.6-14.6); RBC Distribution Width SD 38.7 fl (35.1-43.9); Red Blood Count 5.86 M/mm3 (4.6-6.2)
[2024-08-26 11:04] LABS: Anion Gap 6 (5-15); BUN 18 mg/dL (7-18); BUN/Creat Ratio 16.5 RATIO (10-20); Calcium,Total 9.1 mg/dL (8.5-10.1); Chloride 104 mmol/L (98-107); Cholesterol 211 mg/dL (200); Creatinine, Serum 1.09 mg/dL (0.70-1.30); EST Glomerular Filtration Rate 79 mL/min (>60); Est Glom Filt Rate - Afr Amer 95 mL/min (>60); Glucose 99 mg/dL (74-106); High Density Lipoprotein 54 mg/dL; Potassium 4.1 mmol/L (3.5-5.1); Sodium Level 134 mmol/L (136-145); Triglycerides 95 mg/dL; Very Low Density Lipoprotein 19 mg/dL (5-40)
== END | disposition home or self-care (01) ==
LOC: MFPLAB 08:43
PROVIDERS: PCP Family Medicine; Referring Provider Family Medicine; Visit Provider Family Medicine
DX: E29.1 Testicular hypofunction (principal); I10 Essential (primary) hypertension
CPT/HCPCS: 36415; 80048; 80061; 84403; 85025

== ENCOUNTER → 2025-04-15 | Outpatient (CLI) | payer BC, SELFPAY ==
[2025-04-15 12:30] LABS: Hematocrit 50.5 % (40-54); Hemoglobin 17.5 g/dL (13.0-16.5); Immature Granulocytes Count 0.020 X10^3/uL (0.0-0.0); Mean Corp Hgb Conc 34.7 g/dL (32-36); Mean Corpuscular Volume 87.2 fL (80-94); Mean Platelet Vol. 11.9 fl (6.2-12.0); NRBC Flagged by Analyzer 0 % (0-5); Platelet Count 190 K/mm3 (150-450); RBC Distribution Width CV 12.8 % (11.6-14.6); RBC Distribution Width SD 40.6 fl (35.1-43.9); Red Blood Count 5.79 M/mm3 (4.6-6.2); White Blood Count 4.6 K/mm3 (4.4-11.0)
[2025-04-15 14:19] LABS: AST(SGOT) 27 U/L (<=37); Alanine Aminotransfer ALT/SGPT 23 U/L (<=46); Albumin, Serum 4.5 g/dL (3.5-5.0); Alkaline Phosphatase 51 U/L (40-129); Anion Gap 11 (5-15); BUN 17 mg/dL (4-19); BUN/Creat Ratio 13.7 RATIO (10-20); Calcium,Total 9.9 mg/dL (7.6-11.0); Carbon Dioxide 24.0 mmol/L (21.0-32.0); Chloride 100 mmol/L (98-108); Cholesterol 213 mg/dL (<=200); Globulin 2.9 g/dL (2.2-4.2); Glucose 88 mg/dL (70-99); Low Density Lipoprotein Calc. 145 mg/dL; PSA,Total- Diagnostic 1.93 ng/mL (0.00-4.00); Potassium 5.0 mmol/L (3.3-5.1); Triglycerides 100 mg/dL; Very Low Density Lipoprotein 20 mg/dL (5-40); cholesterol:hdl ratio screen 4.39
[2025-04-20 11:08] LABS: Testosterone, % Free 4.94 % (1.50-4.20); Testosterone, Free 35.17 ng/dL (5.00-21.00)
== END | disposition home or self-care (01) ==
LOC: MFPLAB 09:41
PROVIDERS: PCP Family Medicine; Visit Provider Family Medicine
DX: E29.1 Testicular hypofunction (principal); I10 Essential (primary) hypertension
CPT/HCPCS: 36415; 80053; 80061; 84153; 84402; 84403; 85025

== ENCOUNTER → 2025-08-17 | Outpatient (CLI) | payer BC, SELFPAY ==
[2025-08-17 10:20] LABS: Hematocrit 50.6 % (40-54); Hemoglobin 17.3 g/dL (13.0-16.5); Immature Granulocytes Count 0.020 X10^3/uL (0.0-0.0); Mean Corp Hgb Conc 34.2 g/dL (32-36); Mean Corpuscular Volume 89.1 fL (80-94); Mean Platelet Vol. 12.9 fl (6.2-12.0); NRBC Flagged by Analyzer 0 % (0-5); POSITIVE COUNT YES; Platelet Count 156 K/mm3 (150-450); RBC Distribution Width CV 12.8 % (11.6-14.6); RBC Distribution Width SD 42.3 fl (35.1-43.9); Red Blood Count 5.68 M/mm3 (4.6-6.2); White Blood Count 4.5 K/mm3 (4.4-11.0)
[2025-08-17 10:48] LABS: Anion Gap 9 (5-15); BUN 15 mg/dL (4-19); BUN/Creat Ratio 13.4 RATIO (10-20); Calcium,Total 9.5 mg/dL (7.6-11.0); Carbon Dioxide 27.6 mmol/L (21.0-32.0); Chloride 100 mmol/L (98-108); Glucose 99 mg/dL (70-99); Potassium 4.4 mmol/L (3.3-5.1)
[2025-08-17 11:20] LABS: Differential Indicated SCAN CRITERIA MET
== END | disposition home or self-care (01) ==
LOC: MFPLAB 09:05
PROVIDERS: PCP Family Medicine; Visit Provider Family Medicine
DX: I10 Essential (primary) hypertension (principal); E29.1 Testicular hypofunction
CPT/HCPCS: 36415; 80048; 84403; 85025